=== PATIENT | male | born 1985 | race African-American/Black ===

== ENCOUNTER 2021-08-23 12:02 | Emergency (ER) | payer BC, SELFPAY ==
[2021-08-23 12:10] VITALS: BP 147/90; PULSE 85; RESP 20; TEMP 36.4; O2SAT 100
--- NOTE | 2021-08-23 12:20 | WPDEDEXPGENP ---
HPI - General Ped General Chief complaint: Upper Respiratory Infection Stated complaint: Sore Throat Time Seen by Provider: 08/23/21 12:20 Source: patient Mode of arrival: ambulatory Limitations: no limitations Nursing Documentation: reviewed/agree History of Present Illness HPI narrative: 36-year-old male patient presents to the [facility] with complaints of sore throat x2 days. Denies fevers, body aches or chills. Denies any runny nose stuffy nose or cough. Patient denies ever having strep throat before the past. Patient states he is not vaccinated against Covid or influenza. Related Data Allergies Allergy/AdvReac Type Severity Reaction Status Date / Time No Known Allergies Allergy Verified 08/23/21 12:21 Pediatric Review of Systems Review of Systems: CONSTITUTIONAL: Denies fever, chills, or sweats. EYES: Denies visual changes, redness, or discharge. ENT: Denies rhinorrhea, congestion, positive sore throat, denies otalgia. CARDIOVASCULAR: Denies chest pain, palpitations, or edema. RESPIRATORY: Denies cough or dyspnea. GASTROINTESTINAL: Denies abdominal pain, nausea, vomiting, or diarrhea. GENITOURINARY: Denies dysuria or hematuria. SKIN: Denies rash or itching. MUSCULOSKELETAL: Denies back pain, joint pain, or myalgia. NEUROLOGIC: Denies headache, numbness, or weakness. PSYCHIATRIC: Denies anxiety or depression. [facility] Past Medical History Medical History (Updated 08/23/21 @ 12:53 by FATOU Walker) No significant past medical history Comments At the time of my signature I agree with nursing past medical history, surgical, social, and family history. There is no relevant family history pertinent to the presenting complaint. Pediatric Exam Narrative: Physical exam: GENERAL: Well-appearing, well-nourished, and in no acute distress. HEAD: Normocephalic, atraumatic. EYES: PERRLA and EOMI. ENT: Nares clear, no rhinorrhea or epistaxis. Mucous membranes moist. Posterior pharynx with slight swelling and erythema present. Slight tonsil enlargement noted. No exudates or lesions present. NECK: Supple. No lymphadenopathy CHEST: Clear to auscultation. No respiratory distress. HEART: Regular rate and rhythm. No murmur heard. Normal peripheral pulses. ABDOMEN: Soft, nontender, nondistended, normal active bowel sounds. EXTREMITIES: Normal range of motion. No edema. SKIN: Warm, dry, no rash. NEURO: No focal deficits. Alert and oriented x3. Course Course Level of Care: Express Care Visit Reevaluation(s) Reevaluation #1: Notify patient that his strep and Covid test are both negative. Discussed with patient we will discharge him home with some steroids due to the fact that his throat in the back does appear slightly swollen. Discussed with him he can continue taking Tylenol and ibuprofen as needed for pain as well as do warm salt water gargles. Patient verbalized understanding denies any other questions or time. Date: 08/23/21 Time: 12:59 Vital Signs Vital signs: Vital Signs Temperature 36.4 C L 08/23/21 12:10 Pulse Rate 85 08/23/21 12:10 Respiratory Rate 20 08/23/21 12:10 Blood Pressure 147/90 H 08/23/21 12:10 Pulse Oximetry 100 08/23/21 12:10 Temperature 36.4 C L 08/23/21 12:10 Pulse Rate 85 08/23/21 12:10 Respiratory Rate 20 08/23/21 12:10 Blood Pressure 147/90 H 08/23/21 12:10 Pulse Oximetry 100 08/23/21 12:10 Vital signs reviewed The patient has been informed that they may have pre-hypertension or Hypertension based on a BP reading in the department. I recommend that the patient call the primary care provider listed on their discharge instructions or a physician of their choice this week to arrange follow up for further evaluation of possible pre-hypertension or Hypertension Medical Decision Making Differential Diagnosis Differential Diagnosis: Differential diagnosis: Viral pharyngitis, pharyngitis, group A strep, infectious mononucleosis, gonococcal pharyngitis, exudative phar
== END 2021-08-23 12:58 | disposition home or self-care (01) ==
PROVIDERS: Emergency Provider Nurse Practitioner Family
DX: J02.9 Acute pharyngitis, unspecified (principal); Z20.822 Contact with and (suspected) exposure to COVID-19
CPT/HCPCS: 87081; 87426; 87880; 99213; C9803; G0463

== ENCOUNTER 2022-07-12 11:16 | Emergency (ER) | payer BC, SELFPAY ==
--- NOTE | 2022-07-12 11:19 | ED.EYEPROB ---
HPI - Eye Problem General Chief complaint: Eye Problems Stated complaint: Left eye/can't see Time Seen by Provider: 07/12/22 11:25 Source: patient and RN notes reviewed Mode of arrival: ambulatory Limitations: no limitations History of Present Illness HPI Narrative: 37-year-old male presents concern for left eye redness, blurriness, purulent discharge. Reports it was crusted shut when he woke up this morning. He reports it started off is itchy, he used [id number] ?pinkeye? drops that did not work. He denies foreign body or injury to the eye. Reports his vision is blurry. chief complaint: eye pain Related Data Allergies Allergy/AdvReac Type Severity Reaction Status Date / Time No Known Allergies Allergy Verified 08/23/21 12:21 Review of Systems Review of Systems: CONSTITUTIONAL: Denies malaise, chills, sweats, or fever. EYES: Denies visual changes. Reports left eye redness, pain, irritation, discharge. ENT: Denies rhinorrhea, congestion, sinus pain, otalgia or sore throat. SKIN: Denies rash or itching. NEUROLOGIC: Denies numbness, weakness, or headache. PSYCHIATRIC: Denies anxiety or depression. All systems reviewed & are unremarkable except as noted in HPI and below PMFSH Past Medical History Medical History (Updated 07/12/22 @ 11:32 by Jazmyn Ocampo NP) No significant past medical history Comments At time of signature, agree with nursing past medical, surgical, social and family history. There is no relevant family history pertinent to the presenting complaint Exam Narrative: GENERAL: Well-appearing, well-nourished, and in no acute distress. HEAD: Normocephalic, atraumatic. EYES: PERRLA, right sclera clear, and EOMI. No nystagmus. Left sclera and conjunctivae injected with purulent drainage, left upper lid mildly edematous tenderness. Right Upper and lower eyelid unremarkable, no periorbital edema noted ENT: Nares clear, turbinates pink, no rhinorrhea or epistaxis. Mucous membranes moist. TM pearly [place] with sharp light reflex bilaterally; no tragal tenderness. NECK: Supple. CHEST: No respiratory distress. Speaks in full sentences. HEART: Regular rate and rhythm. SKIN: Warm, dry, no visible rash. NEURO: Alert and oriented x3. PSYCH: Normal mood and affect Course Course Emergency Course: Patient is aware of diagnosis, understands and agrees to treatment plan. Anticipatory guidance given. Patient agrees to follow-up as directed and is aware of reasons to seek care at the emergency department. Portions of this record may have been created with voice recognition software Level of Care: Express Care Visit Vital Signs Vital signs: Reviewed. MDM - Eye Problem MDM Narrative Medical decision making narrative: Consideration of the following conditions may be warranted for the presenting problem, they are not final diagnoses: Bacterial conjunctivitis, allergic conjunctivitis, viral conjunctivitis, foreign body, blepharitis, chalazion, hordeolum, corneal abrasion, preseptal cellulitis, orbital cellulitis. No evidence of proptosis, ophthalmoplegia, vision loss, pain with eye movement. Exam findings show no acute concerns or changes; patient is non-toxic appearing and is in no distress. Patient is appropriate for outpatient treatment and follow-up. Critical Care Time Critical Care Time Critical Care Time: No Discharge Plan Discharge Clinical Impression: Conjunctivitis Condition: Stable Instructions: Conjunctivitis (ED) Additional Instructions: Do not touch or rub your eye. Use a warm or cool washcloth on your eye for comfort Use eyedrops as directed Practice good handwashing and hygiene to prevent spread of infection You may take Tylenol or ibuprofen for pain Follow-up with PCP or waste removalist if condition is not improving in 2-3days. Go to the emergency room if you have pain behind your eye, pressure behind her eye, difficulty seeing, or other severe symptoms Prescriptions:
[2022-07-12 11:20] VITALS: BP 168/98; PULSE 90; RESP 20; TEMP 36.9; O2SAT 100
== END 2022-07-12 11:43 | disposition home or self-care (01) ==
PROVIDERS: Emergency Provider Nurse Practitioner; PCP Family Medicine
DX: H10.9 Unspecified conjunctivitis (principal)
CPT/HCPCS: 99213; G0463